=== PATIENT | male | born 1965 | race Caucasian/White ===

== ENCOUNTER 2023-06-19 08:50 | Emergency (ER) | payer OTHER, SELFPAY ==
--- NOTE | ~2023-06-19 | CT_ITS ---
EXAMINATION: CT ABDOMEN AND PELVIS WITH CONTRAST CLINICAL INFORMATION: Left flank and lower quadrant pain. COMPARISON: None available. TECHNIQUE: Multidetector volumetric images were obtained from the superior aspect of the liver through the pubic symphysis following administration 85 mL of Omnipaque 350 intravenous contrast. Sagittal and coronal reformatted images were obtained on the technologist's workstation. This CT examination was performed using dose optimization techniques as appropriate, variously including the following: *Automated exposure control *Adjustment of mA and/or kV according to patient size (this includes techniques or standardized protocols for targeted exams where dose is matched to indication/reason for exam; i.e. extremities or head) *Use of iterative reconstruction technique DLP: 908 mGy-cm FINDINGS: Visualized lung bases are well aerated. The liver is normal in size but demonstrates diffusely decreased attenuation. There are a few scattered hyperdense regions which are nonspecific but may represent areas of focal fatty sparing, particularly those abutting the gallbladder. There is a 5 cm cyst within the left hepatic lobe with a few smaller hypodense hepatic lesions which are too small to accurately characterize. The gallbladder is normal in appearance. The pancreas, spleen and adrenal glands are unremarkable. Symmetrically enhancing kidneys. 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 There is moderate left-sided hydroureteronephrosis secondary to a 4 mm calcification within the distal left ureter. There is some perinephric/periureteral stranding noted within the region of the left kidney/proximal left ureter. There is a single 2 mm nonobstructing calculus within the midpole the right kidney. There is no right-sided hydronephrosis. There is a 4 cm cyst of the right kidney. The stomach is relatively decompressed. Normal caliber loops of small and large bowel. Mild to moderate colonic diverticulosis without CT evidence to suggest active diverticulitis. Small fat-containing umbilical hernia. Normal caliber abdominal aorta. No retroperitoneal lymphadenopathy. The bladder is normal in appearance. The prostate gland is normal in size. Tiny fat-containing inguinal hernias bilaterally. No gross free pelvic fluid. No inguinal lymphadenopathy. Prominent pelvic phleboliths. Mild to moderate diffuse degenerative changes of the spine. CT/CT abdomen pelvis w IV con IMPRESSION: 1. Moderate left-sided hydroureteronephrosis secondary to a 4 mm calcification within the distal left ureter. There is some perinephric/periureteral stranding noted within the region of the left kidney/proximal left ureter. 2. 2 mm nonobstructing right renal calculus. No right-sided hydronephrosis. 3. Diffusely decreased liver attenuation suggesting hepatic steatosis. Correlation with liver enzymes recommended. 4. 5 cm left hepatic cyst with a few smaller hypodense hyperdense hepatic lesions which are inaccurately characterized. Further evaluation can be obtained with multiphasic MRI imaging if clinically indicated. 5. Mild to moderate colonic diverticulosis without CT evidence to suggest active diverticulitis. Fleischner guidelines were followed.
[2023-06-19 08:52] VITALS: BP 210/115; PULSE 78; RESP 18; TEMP 36.8; O2SAT 96; BMI 35.3
--- NOTE | 2023-06-19 09:13 | ED_ITS ---
HPI - Abdominal Pain General Chief Complaint: Abdominal Pain Stated Complaint: Tearful, abd pain Time Seen by Provider: 06/19/23 09:07 Source: patient and family () Mode of arrival: ambulatory History of Present Illness HPI narrative: 58-year-old male without any known medical problems, denies any alcohol or cigarette use presents with 1 week of intermittent left-sided abdominal/flank pain that has become far worse today with radiation into the left inguinal and left scrotal area and associated with nausea and vomiting. He denies any history of kidney stones. Related Data Previous Rx's Medication Instructions Recorded ketorolac 10 mg tablet 10 mg PO Q6H PRN pain 5 days #20 06/19/23 tabs prednisone 20 mg tablet 20 mg PO DAILY #4 tabs 06/19/23 tamsulosin 0.4 mg capsule (Flomax) 0.4 mg PO BEDTIME #4 caps 06/19/23 Allergies Allergy/AdvReac Type Severity Reaction Status Date / Time No Known Allergies Allergy Verified 06/19/23 08:56 Review of Systems Review of Systems Pertinent positives and negatives as stated in HPI PMFSH Past Medical History Source: nursing notes reviewed Social History Social History Alcohol intake: never Smoked in Last 30 Days: No Use of substances other than those prescribed or required for medical reasons: No Advance Directives: No Advance Directives Information Provided: Yes Physical Exam ED Vital Signs: Vital Signs - 24 hr 06/19/23 08:52 06/19/23 10:27 06/19/23 12:00 Temperature 98.2 F 98.6 F Pulse Rate 78 71 61 Respiratory Rate 18 18 16 Blood Pressure 210/115 H 166/96 H 168/99 H Pulse Oximetry 96 94 97 Oxygen Delivery Method Room Air Room Air Room Air BMI result Body Mass Index 35.3 VITAL SIGNS: Reviewed. GENERAL: Well developed, well nourished, in distress, pacing. HEAD: Normocephalic/atraumatic EYES: PERRLA, EOMI EARS: Ext canals without abnormality NOSE: Nares patent bilateral OROPHARYNX: no oral lesions noted, posterior pharynx clear NECK: Supple, no adenopathy LUNGS: Normal breath sounds. No adventitious sounds or accessory muscle use. S pO2<96> CARDIOVASCULAR: Regular rate and rhythm without noted murmurs ABDOMEN: Soft, non-tender, non-distended with bowel sounds. MUSCULOSKELETAL: No tenderness, deformities, or effusions noted on gross inspection. EXTREMITIES: No cyanosis, clubbing or edema. SKIN: Inspection of the skin reveals no rashes NEUROLOGIC: Alert and oriented x 4. Strength and sensation to light touch were grossly intact x 4. Medical Decision Making Medical Decision Making [facility] Narrative: 58-year-old male with history and clinical presentation, DDX: renal colic, diverticulitis, low concern for testicular torsion, inguinal hernia, SBO. - Pain meds - CBC, CMP, UA - CT abd/pelvis I reviewed all investigations and re-evaluated the patient. On re-evaluation patient is feeling much improved, hematologic indices negative for leukocytosis or left shift and there is no anemia or thrombocytopenia. Chemistry indices are not significant for NILDA or electrolyte disturbances, there is a mild bump in the T bili but this in conjunction with ALT I attribute to hepatic steatosis which was also recognized on the CT scan. Patient's blood pressure on re-evaluation has improved, CT scan significant for left hydro and 4 mm distal ureteral stone. 1244: I consulted with Urology who understands the patient will be presenting to the clinic tomorrow. Patient is otherwise hemodynamically stable for discharge. All results and findings were discussed with the patient at bedside and he knows to call the urology office in the morning. Differential Diagnosis Differential Diagnoses: The differential diagnosis associated with the presentation includes Please see the discussion above Admission/Observation Consideration of admission/observation: Escalation of care including admission/observation considered Please see the discussion above Consult Healthcare Provider Management of the patient was discussed with: Carpenter Assistant Please see the discussion above Lab Data [facility] Lab Attestation statement: I reviewed the patient's lab results. Please see the discussion above 06/19/23 09:18 06/19/23 09:47 Labs: Lab Results 06/19/23 06/19/23 06/19/23 Range/Units 09:18 09:47 11:32 WBC 9.4 (4.8-10.8) X10*3/uL RBC 5.42 (4.60-5.80) X10*6/uL Hgb 16.5 (14.0-18.0) g/dl Hct 49.2 (42.0-52.0) % MCV 90.8 (80.0-98.0) fL MCH 30.4 (27.0-33.0) pg MCHC 33.5 (31.0-36.0) g/dl RDW 12.2 (11.0-16.0) % Plt Count 202 (160-400) X10*3/uL MPV 9.9 (9.4-12.4) fL Immature Gran % (Auto) 0.3 (0.0-0.4) % Neut % (Auto) 59.1 (45-73) % Lymph % (Auto) 30.7 (20-40) % [place] % (Auto) 8.0 (2-11) % Eos % (Auto) 1.5 (0-4) % Baso % (Auto) 0.4 (0-2) % Lymph # (Auto) 2.9 (1.2-4.9) X10*3/uL [place] # (Auto) 0.8 (0.1-1.2) X10*3/uL Eos # (Auto) 0.1 (0.0-0.4) X10*3/uL Baso # (Auto) 0.0 (0.0-0.2) X10*3/uL Abs Immat Gran (auto) 0.03 (0.00-0.03) X10*3/uL Absolute Neuts (auto) 5.6 (2.0-8.3) x10*3/uL Absolute Nucleated RBC 0.000 (0.0-0.012) X10*3/uL Nucleated RBC % (auto) 0.0 (0.0-0.2) /100WBC Sodium 141 (135-145) mmol/L Potassium 4.5 (3.3-5.1) mmol/L Chloride 104 (96-108) mmol/L Carbon Dioxide 25 (22-29) mmol/L Anion Gap 17 (12-20) BUN 22 H (9-16) mg/dL Creatinine 1.20 (0.5-1.4) mg/dL Estim Creat Clear Calc 90.4 Estimated GFR > 60 Random Glucose 125 H (60-115) mg/dL Calcium 9.1 (8.4-10.2) mg/dL Total Bilirubin 1.3 H (0.0-1.0) mg/dL Direct Bilirubin 0.4 (0.0-0.5) mg/dL AST 33 (5-37) U/L ALT 48 H (0-40) U/L Alkaline Phosphatase 50 (39-117) U/L Total Protein 7.3 (6.5-8.0) g/dL Albumin 4.2 (3.5-5.0) g/dL Lipase 14 (8-78) U/L Urine Color Yellow Urine Appearance Clear Urine pH 8.5 (5.0-9.0) Ur Specific [place] >= 1.030 H (1.005-1.025) Urine Protein Negative (Neg-Trace) mg/dL Urine Glucose (UA) Negative (Negative) mg/dL Urine Ketones Trace (Negative) mg/dL Urine Blood Negative (Negative) Urine Nitrite Negative (Negative) Ur Leukocyte Esterase Negative (Negative) Radiology Impression Radiologist Impression: 4 mm stone, left hydro, otherwise my interpretation is in agreement with radiology's impression. Medications Administered Discontinued Medications Generic Name Dose Route Start Last Admin Trade Name Freq PRN Reason Stop Dose Admin Fentanyl 25 mcg 06/19/23 09:12 06/19/23 09:23 Fentanyl Citrate/Pf 100 Mcg/2 Ml Vial IVPUSH 06/19/23 09:13 25 mcg ONCE ONE Administration Protocol Sodium Chloride 1,000 mls @ 999 mls/hr 06/19/23 10:30 06/19/23 10:37 Ns IV 06/19/23 11:30 999 mls/hr .Q1H1M VANDANA Administration Iohexol 100 ml 06/19/23 10:18 06/19/23 10:18 Iohexol 350 Mg/Ml 100 Ml Infus..Btl IV 06/19/23 10:19 85 ml ONCE ONE Administration Ketorolac Tromethamine 15 mg 06/19/23 09:12 06/19/23 09:22 Ketorolac Tromethamine 30 Mg/Ml Vial IVPUSH 06/19/23 09:13 15 mg ONCE ONE Administration Tamsulosin HCl 0.4 mg 06/19/23 10:26 06/19/23 10:35 Tamsulosin Hcl 0.4 Mg Capsule PO 06/19/23 10:27 0.4 mg ONCE ONE Administration Critical Care Time Critical Care Time Critical Care Time: Yes Total Critical Care Time: 30 Attestation: I personally attest to this time spent taking care of the patient. Discharge Plan Discharge Clinical Impression: Renal colic, Ureterolithiasis, Hydronephrosis Patient Disposition: Home, Self-Care Instructions: Renal Colic (ED), Low Oxalate Diet (ED), Hydronephrosis (ED), Ureteral Stones (ED) Additional Instructions: 1. Tylenol 1000 mg, orally, every 6 hours as needed for pain control. Do not exceed 4000 mg within 24 hours. 2. Please increase the amount of water that you drink. 3. Please follow-up with the Urology office by calling in the morning to set up an appointment for re-evaluation. Return to the ER for any worsening symptoms. Prescriptions: New ketorolac 10 mg tablet 10 mg PO Q6H PRN (Reason: pain) 5 Days Qty: 20 0RF Rx Instructions: Patient received Toradol in the emergency room prednisone 20 mg tablet 20 mg PO DAILY Qty: 4 0RF tamsulosin [Flomax] 0.4 mg capsule 0.4 mg PO BEDTIME Qty: 4 0RF Referrals: Torres Valdes MD [Physician] - (4mm stone, left hydro)
[2023-06-19] MEDS: Ketorolac Tromethamine 30 MG/ML VIAL 15 MG IVPUSH (09:22)
[2023-06-19 09:23] LABS: Basophils Percent Auto 0.4 % (0-2); Eosinophils Absolute Auto 0.1 X10*3/uL (0.0-0.4); Eosinophils Percent Auto 1.5 % (0-4); Hematocrit 49.2 % (42.0-52.0); Hemoglobin 16.5 g/dl (14.0-18.0); Imm Gran Abs Auto 0.03 X10*3/uL (0.00-0.03); Imm Gran Pct Auto 0.3 % (0.0-0.4); Lymphocytes Absolute Auto 2.9 X10*3/uL (1.2-4.9); Lymphocytes Percent Auto 30.7 % (20-40); MANUAL DIFF FLAG NO; Mean Corpuscular HGB Conc 33.5 g/dl (31.0-36.0); Mean Corpuscular Hemoglobin 30.4 pg (27.0-33.0); Mean Corpuscular Volume 90.8 fL (80.0-98.0); Mean Platelet Volume 9.9 fL (9.4-12.4); Monocytes Absolute Auto 0.8 X10*3/uL (0.1-1.2); Neutrophils Absolute Auto 5.6 x10*3/uL (2.0-8.3); Neutrophils Percent Auto 59.1 % (45-73); Platelet Count 202 X10*3/uL (160-400); Red Blood Count 5.42 X10*6/uL (4.60-5.80); Red Cell Distribution Width 12.2 % (11.0-16.0); White Blood Count 9.4 X10*3/uL (4.8-10.8)
[2023-06-19] MEDS: fentaNYL citrate/PF 100 MCG/2 ML VIAL 25 MCG IVPUSH (09:23)
--- NOTE | 2023-06-19 10:04 | PC.NURSE ---
pt aox4, ambulatory. reporting severe pain which starts in groin on left side and radiates up into upper abdomen and to back. Pain has been occuring on and off for 1-2 weeks but until now has typically resolved. Today, pt reports some vomiting. IV inserted, labs drawn, and medication for pain given per JAN. Pt to CT scan now.
[2023-06-19 10:08] LABS: Alanine Aminotransferase 48 U/L (0-40); Albumin Level 4.2 g/dL (3.5-5.0); Alkaline Phosphatase 50 U/L (39-117); Anion Gap 17 (12-20); Aspartate Amino Transferase 33 U/L (5-37); Bilirubin Direct 0.4 mg/dL (0.0-0.5); Bilirubin Total 1.3 mg/dL (0.0-1.0); Blood Urea Nitrogen 22 mg/dL (9-16); Calcium 9.1 mg/dL (8.4-10.2); Carbon Dioxide 25 mmol/L (22-29); Chloride 104 mmol/L (96-108); Creatinine Clr Calc Pharmacy 90.4; Estimated Glomerular Filt Rate > 60; Glucose Random 125 mg/dL (60-115); Lipase 14 U/L (8-78); Potassium 4.5 mmol/L (3.3-5.1); Sodium 141 mmol/L (135-145); Total Protein 7.3 g/dL (6.5-8.0)
[2023-06-19] MEDS: iohexoL 350 MG/ML 100 ML INFUS..BTL IV (10:18)
[2023-06-19 10:27] VITALS: BP 166/96; PULSE 71; RESP 18; TEMP 37; O2SAT 94
[2023-06-19] MEDS: Tamsulosin HCL 0.4 MG CAPSULE PO (10:35)
[2023-06-19] MEDS: 0.9 % Sodium Chloride 1,000 ML 999 ML IV (10:37)
[2023-06-19 11:42] LABS: Appearance Urine Clear; Color Urine Yellow; Glucose Urine UA Negative (Negative); Leukocyte Esterase Urine Negative (Negative); Nitrite Urine Negative (Negative); PH 8.5 (5.0-9.0); Specific Gravity - Urine >= 1.030 (1.005-1.025); Urine Blood Negative (Negative); Urine Ketones Trace mg/dL (Negative); Urine Protein Negative (Neg-Trace)
[2023-06-19 12:00] VITALS: BP 168/99; PULSE 61; RESP 16; O2SAT 97
== END 2023-06-19 13:29 | disposition home or self-care (01) ==
PROVIDERS: Emergency Provider Student in an Organized Health Care Education/Training Program
DX: N23 Unspecified renal colic (principal); N20.1 Calculus of ureter; N13.30 Unspecified hydronephrosis; Z79.899 Other long term (current) drug therapy
CPT/HCPCS: 36415; 74177; 80048; 80076; 81003; 83690; 85025; 96361; 96374; 96375; 99284; J1885; J3010; Q9967

== ENCOUNTER 2023-07-05 08:31 | Outpatient (AMB) | payer OTHER, SELFPAY ==
--- NOTE | 2023-07-05 08:33 | A.OFFVIS_ITS ---
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 There is moderate left-sided hydroureteronephrosis secondary to a 4 mm calcification within the distal left ureter No family history No clear dietary trigger Recommendation - increase fluid intake to above 64 oz daily - surveillance imaging PFS Medical History (Updated 07/05/23 @ 08:54 by Torres Valdes MD) Temporary high blood pressure Social History Alcohol intake: never Review of Systems Const Denies chills and Denies fever(s) Card Reports no additional complaints and Denies syncope Resp Denies cough GI Denies abdominal pain and Denies heartburn Reports as per HPI and Denies change in libido Neuro Denies syncope Psych Denies change in libido Endo Denies change in libido Physical Exam Const General: cooperative, healthy appearing, comfortable and no acute distress Orientation/consciousness: patient oriented x3 HEENT Face and sinus: Yes normal facial exam Mouth: moist mucous membranes Neck Neck: Yes normal visual inspection, Yes full ROM and Yes trachea midline Chest Chest palpation & inspection: normal inspection of the chest Resp Effort & Inspection: normal respiratory effort, able to speak in complete sentences and no respiratory distress GI Inspection: Yes normal to inspection Back/Spine/Pelvis Cervical Spine: normal cervical lordosis Thoracic/Lumbar Spine: thoracic and lumbar spine normal to inspection Skin General skin exam: no rashes or lesions noted Neuro General: patient oriented x3, gait normal, tone normal and moves all extremities Extrem General: Yes normal to inspection and Yes capillary refill normal Results AMB Urinalysis, Automated UA Leukoctes 0 Armaan/uL Last Edit by Shannon Carreon, A on 07/05/23 08:43 UA Nitrite Negative Last Edit by Shannon Carreon, A on 07/05/23 08:43 UA Urobilinogen 0.2 mg/dL Last Edit by Shannon Carreon, A on 07/05/23 08:4 3 UA Protein 0 mg/dL Last Edit by Shannon Carreon, A on 07/05/23 08:43 UA pH 6.0 Last Edit by Shannon Carreon, A on 07/05/23 08:43 UA Blood 0 Raffaele/uL Last Edit by Shannon Carreon, A on 07/05/23 08:43 UA Specific [place] 1.020 Last Edit by Shannon Carreon, A on 07/05/23 08: 43 UA Ketone Negative Last Edit by Shannon Carreon, A on 07/05/23 08:43 UA Bilirubin 0 mg/dL Last Edit by Shannon Carreon, A on 07/05/23 08:43 UA Glucose 0 mg/dL Last Edit by Shannon Carreon, A on 07/05/23 08:43 Results Reviewed Results Reviewed: Laboratory Last Values Urine pH (Auto) 6.0 07/05/23 08:38 Specific [place] (Auto) 1.020 07/05/23 08:38 Urine Protein (Auto) 0 mg/dL 07/05/23 08:38 Glucose (UA)(Auto) 0 mg/dL 07/05/23 08:38 Urine Ketones (Auto) Negative 07/05/23 08:38 Urine Blood (Auto) 0 Raffaele/uL 07/05/23 08:38 Urine Nitrite (Auto) Negative 07/05/23 08:38 Urine Bilirubin (Auto) 0 mg/dL 07/05/23 08:38 Urine Urobilinogen (Auto) 0.2 mg/dL 07/05/23 08:38 Leukocyte Esterase (Auto) 0 Armaan/uL 07/05/23 08:38 Assessment & Plan Assessment & Plan (1) Nephrolithiasis: Code(s): N20.0 - Calculus of kidney Plan One month imaging 6 week tele visit Orders: Orders AMB Urinalysis Automated Today Z13.9 - Encounter for screening, unspecified US renal BI 1 Month N20.0 - Calculus of kidney Patient Instructions: Imaging studies, laboratory and physical exam results were discussed and reviewed in detail. No major barriers to patient understanding were identified. An opportunity to ask questions regarding the treatment plan was provided. All questions were answered. The patient expressed understanding and agreement with the above treatment plan. The patient is aware they should contact our office by phone for worsening of their current condition or the appearance of new urologic symptoms. Compliance is encouraged with any medications and followup testing that is ordered. It is a privilege to participate in the urologic care of your patient. If you have any questions or concerns regarding treatment for the above conditions, or other urologic issues, please do not hesitate to contact me. The office telephone contact is [phone]. This note is constructed using voice recognition software. While every effort has been made to ensure accuracy management recruiter errors may have been included. Yours sincerely, Dr Torres Valdes MD, [facility] - Urology Providers of Expert, Compassionate Care for the Genitourinary System Coding Level of Care Code New Pt Level 3 (17206) Diagnoses Nephrolithiasis N20.0
== END 2023-07-05 08:55 | disposition home or self-care (01) ==
PROVIDERS: Visit Provider Urology
DX: N20.0 Calculus of kidney (principal)
CPT/HCPCS: 99203

== ENCOUNTER → 2023-07-05 08:31 | Outpatient (BNVA) | payer OTHER, SELFPAY | PROVIDERS: Visit Provider Urology ==

== ENCOUNTER 2023-07-27 16:02 | Outpatient (REF) | payer OTHER, SELFPAY ==
--- NOTE | ~2023-07-27 | US_ITS ---
EXAMINATION: US RETROPERITONEAL LIMITED (RENAL ONLY) CLINICAL INFORMATION: Calculus of kidney. COMPARISON: CT abdomen/pelvis 06/19/2023. TECHNIQUE: Real-time imaging of the kidneys. FINDINGS: RIGHT KIDNEY: 13.1 x 6.0 x 6.5 cm (SAG x AP x TRV). The kidney is normal in size, contour, and echogenicity. Renal cortical thickness is normal. No hydronephrosis. There is an anechoic cyst upper pole measuring 4.2 x 3.7 x 3.3 cm). There is an echogenic stone midpole measuring 0.7 x 0.4 x 0.7 cm. LEFT KIDNEY: 10.6 x 4.9 x 4.6 cm (SAG x AP x TRV). The kidney is normal in size, contour, and echogenicity. Renal cortical thickness is normal. No calculi or focal parenchymal lesions. No hydronephrosis. US/US renal BI IMPRESSION: There are echogenic 4.2 cm and nonobstructive echogenic 0.7 cm radiopaque stones midpole right kidney. No caliectasis seen. Unremarkable left kidney.
== END 2023-07-27 16:03 | disposition home or self-care (01) ==
LOC: HO.US 16:02
PROVIDERS: Visit Provider Urology
DX: N20.0 Calculus of kidney (principal)
CPT/HCPCS: 76775

== ENCOUNTER 2023-08-04 09:46 | Outpatient (AMB) | payer OTHER, SELFPAY ==
--- NOTE | 2023-08-04 09:47 | A.OFFVIS_ITS ---
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 There is moderate left-sided hydroureteronephrosis secondary to a 4 mm calcification within the distal left ureter - 08/13 renal ultrasound question of smal l stone right side No family history Recommendation - increase fluid intake to above 64 oz d aily - surveillance imaging PFSH Medical History Temporary high blood pressure Social History Alcohol intake: never Review of Systems Const All systems reviewed & are unremarkable except as noted in HPI and below Reports no additional complaints Resp Reports no additional complaints GI Reports no additional complaints Reports as per HPI Musc Reports no additional complaints Physical Exam Telemedicine evaluation Appropriate responses Regular breathing rate and rhythm HEENT Head: Yes normal to inspection Ears: hearing grossly normal bilaterally Eyes General: appearance normal, both eyes and all related structures Neck Neck: Yes normal visual inspection Chest Chest palpation & inspection: normal inspection of the chest Resp Effort & Inspection: normal respiratory effort and able to speak in complete sentences Assessment & Plan Assessment & Plan (1) Nephrolithiasis: Code(s): N20.0 - Calculus of kidney Plan Twelve month follow-up ultrasound Orders: Orders US renal BI 364 Days N20.0 - Calculus of kidney Patient Instructions: Imaging studies, laboratory and physical exam results were discussed and reviewed in detail. No major barriers to patient understanding were identified. An opportunity to ask questions regarding the treatment plan was provided. All questions were answered. The patient expressed understanding and agreement with the above treatment plan. The patient is aware they should contact our office by phone for worsening of their current condition or the appearance of new urologic symptoms. Compliance is encouraged with any medications and followup testing that is ordered. It is a privilege to participate in the urologic care of your patient. If you have any questions or concerns regarding treatment for the above conditions, or other urologic issues, please do not hesitate to contact me. The office telephone contact is [phone]. This note is constructed using voice recognition software. While every effort has been made to ensure accuracy team truck driver errors may have been included. Yours sincerely, Dr Torres Valdes MD, [facility] - Urology Providers of Expert, Compassionate Care for the Genitourinary System Telehealth Telehealth Location of provider rendering services: practice address Location of patient: address on file Patient Identification confirmed using: Name, : Yes Telehealth method: voice only Patient verbally consented to treatment: Yes Patient verbally consented to billing insurance company: Yes Patient informed of any privacy concerns related to visit: Yes Coding Level of Care Code Tele Est Pt Level 3 (91923) Diagnoses Nephrolithiasis N20.0
== END 2023-08-04 10:22 | disposition home or self-care (01) ==
LOC: HO.HUSH 09:47
PROVIDERS: Visit Provider Urology
DX: N20.0 Calculus of kidney (principal)
CPT/HCPCS: 99442

== ENCOUNTER → 2023-08-04 09:46 | Outpatient (BNVA) | payer OTHER, SELFPAY | PROVIDERS: Visit Provider Urology ==